=== PATIENT | female | born 1960 | race Two or more races ===

== ENCOUNTER 2023-11-22 09:59 | Emergency (ER) | payer MEDICAID ==
[~2023-11-22] VITALS: Ht 157.5 cm; Wt 82.7 kg
[2023-11-22 11:06] LABS: Basophils # (auto) 0.1 10 ^3/uL (0-0.2); Basophils % (auto) 0.8 % (0.0-2.0); Eosinophils # (auto) 0.1 10 ^3/uL (0-0.8); Eosinophils % (auto) 1.4 % (0.0-7.0); Hematocrit 39.5 % (36.0-46.0); Lymphocytes # (auto) 2.6 10 ^3/uL (0.4-5.4); Lymphocytes % (auto) 27.4 % (10.0-50.0); Mean Corpuscular Hemoglobin 32.1 pg (28.0-32.0); Mean Corpuscular Hgb Conc. 32.9 g/dL (32.0-36.0); Mean Corpuscular Volume 97.4 fL (80.0-100.0); Monocytes # (auto) 0.8 10 ^3/uL (0-1.3); Neutrophils # (auto) 5.9 10 ^3/uL (1.6-8.6); Neutrophils % (auto) 62.4 % (37.0-80.0); Nucleated Red Blood Cells % 0.1 %; Red Blood Cells 4.05 10^6/uL (4.0-5.20); Red Cell Distribution Width 14.1 % (11.8-14.3); White Blood Cell 9.5 10^3/uL (4.4-10.8)
[2023-11-22 11:28] LABS: Alanine Aminotransferase 17 U/L (7-40); Albumin 4.4 g/dL (3.2-4.8); Alkaline Phosphatase 101 U/L (46-116); Anion Gap 5 (5-15); Aspartate Aminotransferase 22 U/L (13-40); BUN/Creatinine Ratio 14.9 (10.0-20.0); Blood Urea Nitrogen 10 mg/dL (9-23); Calcium 9.7 mg/dL (8.5-10.1); Carbon Dioxide 29 mmol/L (20-30); Chloride 106 mmol/L (98-107); Glucose 93 mg/dL (74-106); Potassium 3.7 mmol/L (3.5-5.1); Sodium 140 mmol/L (136-145)
[2023-11-22 11:29] LABS: Bilirubin, Total 0.8 mg/dL (0.2-1.0); Total Protein 7.1 g/dL (5.7-8.2)
[2023-11-22] MEDS: METOCLOPRAMIDE HCL 5MG/ml INJ 2ml VIAL IM ONE (15:49)
[2023-11-22] MEDS: ACETAMINOPHEN 500 MG TAB PO ONE (15:50)
[2023-11-22 15:51] VITALS: BP 121/70; PULSE 75; RESP 18; TEMP 98; O2SAT 98
[2023-11-22] MEDS ORDERED: METO-281 PO (18:41)
== END 2023-11-22 23:04 | disposition home or self-care (01) ==
LOC: ER 09:59
DX: R51.9 Headache, unspecified (principal); R42 Dizziness and giddiness
CPT/HCPCS: 36415; 70450; 71045; 80053; 83880; 84484; 85025; 85379; 93005; 93970; 96372; 99285; J2765

== ENCOUNTER 2024-09-17 10:55 | Emergency (ER) | payer MEDICAID ==
[~2024-09-17] VITALS: Ht 157.5 cm; Wt 89.5 kg
[~2024-09-17 10:55] MED LIST: METO-281 PO
--- NOTE | 2024-09-17 11:37 | ECG ---
[facility] Test Date: 2024-09-17 Test Time: 11:24:29 Pat Name: DOMINIK WILSON Department: ER Room: [address] [place] [address] Gender: F Leather Patcher: ED : 1960 Requested By: RAIMUNDO LUIS Order Number: [id number] Reading MD: Atif Wright Measurements Intervals [place] Rate: 74 P: 52 CT: 158 QRS: 65 QRSD: 104 T: 47 QT: 347 QTc: 385 Interpretive Statements Sinus rhythm Borderline T wave abnormalities Electronically Signed On 09-21-2024 17:43:47 PST by Atif Wright Please click the below link to view image of tracing.
--- NOTE | 2024-09-17 11:38 | ED.PDOC ---
HPI (NEURO) HPI Comments 64 year old female presents to the ED with chief complaint of headache. Patient reports that she has been experiencing a headache with associated SOB and chest pain that radiates down his left arm and back. Patient relays that she has not followed up with her PCP in [place] regarding this concern. Patient denies any N/V, dizziness, fever, chills, cough, or abdominal pain. Chief Complaint: Headache Time Seen by MD: 11:35 Primary Care Provider: NONE Reviewed Notes: Nurses Notes, Medications, Allergies Information Source: Patient Mode of Arrival: Ambulatory Severity: Moderate Headache Severity: Moderate Timing: Days Duration: Since onset Prehospital treatment: None Headache Quality: Aching Headache Location: Frontal Onset: At rest Circumstances: Spontaneous Symptoms: None Before: Normal After: Headache Modifying factors: Nothing Associated Signs and Symptoms: Headache, Chest Pain Past Medical History PAST MEDICAL HISTORY: Thyroid Surgical History: Surgical History (Other): Liposuction OUTPATIENT THERAPIST History: No Pertinent OUTPATIENT THERAPIST History Family History Family History: Reviewed,noncontributory to illness Social History Smoker: Non-Smoker Alcohol: Denies ETOH Use Drugs: Denies Drug Use Lives In: Home Constitutional: denies: chills, diaphoresis, fatigue, fever, malaise, sweats, weakness, others EENTM: denies: blurred vision, double vision, ear bleeding, ear discharge, ear drainage, ear pain, ear ringing, eye pain, eye redness, hearing loss, mouth pain, mouth swelling, nasal discharge, nose bleeding, nose congestion, nose pain, photophobia, tearing, throat pain, throat swelling, voice changes, others Respiratory: reports: shortness of breath; denies: cough, hemoptysis, orthopnea, SOB at rest, SOB with excertion, stridor, wheezing, others Cardiovascular: reports: chest pain, left arm pain; denies: dizzy spells, diaphoresis, Dyspnea on exertion, edema, irregular heart beat, lightheadedness, palpitations, PND, syncope, others Gastrointestinal: denies: abdomen distended, abdominal pain, blood streaked bowels, constipated, diarrhea, dysphagia, difficulty swallowing, hematemesis, melena, nausea, poor appetite, poor fluid intake, rectal bleeding, rectal pain, vomiting, others Genitourinary: denies: abnormal vagina bleeding, burning, dyspareunia, dysuria, flank pain, frequency, hematuria, incontinence, pain, , vagina discharge, urgency, others Neurological: reports: headache; denies: dizziness, fainting, left sided numbness, left sided weakness, numbness, paresthesia, pre-existing deficit, right sided numbness, right sided weakness, seizure, speech problems, tingling, tremors, weakness, others Musculoskeletal: denies: back pain, gout, joint pain, joint swelling, muscle pain, muscle stiffness, neck pain, others Integumetry: denies: bruises, change in color, change in hair/nails, dryness, laceration, lesions, lumps, rash, wounds, others Allergic/Immunocompromised: denies: Difficulty Healing, Frequent Infections, Hives, Itching, others Hematologic/Lymphatic: denies: anemia, blood clots, easy bleeding, easy bruising, swollen glands, others Endocrine: denies: excessive hunger, excessive sweating, excessive thirst, excessive urination, flushing, intolerance to cold, intolerance to heat, unexplained weight gain, unexplained weight loss, others Psychiatric: denies: anxiety, bipolar disorder, depression, hopeless, panic disorder, schizophrenia, sleepless, suicidal, others All Other Systems: Reviewed and Negative Physical Exam General Appearance: Moderate Distress, Normal HEENT: Normal ENT Inspection, PERRL/EOMI Neck: Full Range of Motion, Non-Tender, Normal, Normal Inspection Respiratory: Chest Non-Tender, Lungs Clear, No Accessory Muscle Use, No Respiratory Distress, Normal Breath Sounds Cardiovascular: No Edema, No JVD, No Murmur, No Gallop, Normal Peripheral Pulses, Regular Rate/Rhythm Breast Exam: Deferred Gastrointestinal: No Organomegaly, Non Tender, No Pulsatile Mass, Normal Bowel Sounds, Soft Genitalia: Deferred Pelvic: Deferred Rectal: Deferred Extremities: No calf tenderness, Normal capillary refill, Normal inspection, Normal range of motion, Non-tender, No pedal edema Musculoskeletal : Apperance: Normal Neurologic: Alert, operations officer trust department II-XII nml as Tested, No Motor Deficits, Normal Affect, Normal Mood, No Sensory Deficits Cerebellar Function: Normal Reflexes: Normal Skin: Dry, Normal Color, Warm Peripheral Pulses: 3+ Radial (R), 3+ Radial (L) Lymphatic: No Adenopathy Was a procedure done? Was a procedure done?: No Differential Diagnosis (SZ) Seizure: Psychogenic Seizure, Closed Head Injury, CVA/TIA X-Ray, Labs, Meds, VS Vital Signs Date Time Temp Pulse Resp B/P (MAP) Pulse Ox O2 Delivery O2 Flow Rate FiO2 09/17/24 12:21 Room Air* 0 21 09/17/24 11:24 74 09/17/24 11:16 98.6 96 20 133/88 (103) 97 Lab Test 09/17/24 11:54 09/17/24 11:22 09/17/24 11:20 Range/Units White Blood Count 9.2 4.4-10.8 10^3/uL Red Blood Count 3.77 L 4.0-5.20 10^6/uL Hemoglobin 13.1 12.2-16.2 g/dL Hematocrit 37.8 36.0-46.0 % Mean Corpuscular Volume 100.3 H 80.0-100.0 fL Mean Corpuscular Hemoglobin 34.7 H 28.0-32.0 pg Mean Corpuscular Hemoglobin Concent 34.6 32.0-36.0 g/dL Red Cell Distribution Width 13.0 11.8-14.3 % Platelet Count 249 140-450 10^3/uL Mean Platelet Volume 7.8 6.9-10.8 fL Neutrophils (%) (Auto) 76.3 37.0-80.0 % Lymphocytes (%) (Auto) 17.8 10.0-50.0 % Monocytes (%) (Auto) 4.9 0.0-12.0 % Eosinophils (%) (Auto) 0.6 0.0-7.0 % Basophils (%) (Auto) 0.4 0.0-2.0 % Neutrophils # (Auto) 7.0 1.6-8.6 10 ^3/uL Lymphocytes # (Auto) 1.6 0.4-5.4 10 ^3/uL Monocytes # (Auto) 0.5 0-1.3 10 ^3/uL Eosinophils # (Auto) 0.1 0-0.8 10 ^3/uL Basophils # (Auto) 0 0-0.2 10 ^3/uL Nucleated Red Blood Cells 0.0 % Sodium Level 142 136-145 mmol/L Potassium Level 4.3 3.5-5.1 mmol/L Chloride Level 107 98-107 mmol/L Carbon Dioxide Level 27 20-31 mmol/L Anion Gap 8 5-15 Blood Urea Nitrogen 11 9-23 mg/dL Creatinine 0.71 0.550-1.02 mg/dL Glomerular Filtration Rate Calc 96 >90 mL/min BUN/Creatinine Ratio 15.5 10.0-20.0 Serum Glucose 110 H 74-106 mg/dL Calcium Level 10.0 8.7-10.4 mg/dL Troponin I High Sensitivity < 3 L </=34 ng/L POC Glucose 113 H 70-106 mg/dl Urine Color Light-yellow Yellow Urine Clarity Clear Clear Urine pH 6.5 5.0-9.0 Urine Specific [place] 1.012 1.001-1.035 Urine Protein Negative Negative Urine Ketones Negative Negative Urine Blood Negative Negative /uL Urine Nitrite Negative Negative Urine Bilirubin Negative Negative Urine Urobilinogen Normal Negative mg/dL Urine Leukocyte Esterase Negative Negative /uL Urine RBC 1 0 - 4 /hpf Urine Microscopic WBC 2 0-5 /HPF Urine Squamous Epithelial Cells None seen <5 /hpf Urine Bacteria None seen None Seen /hpf Urine Glucose 1+ H Normal mg/dL Patient alert. Complaining of headache chest pain. Vitals stable. Answering questions. EKG reviewed does not show any acute changes. Possible TIA. Has never seen a paste up copy camera operator for full workup of the heart. Continues to have chest pain. Echocardiogram. Cardiology consultation. Possible stress test. Explained to the patient. Continue monitoring. EKG reviewed does not show any acute changes. Time of 1ST Reevaluation: 12:35 Reevaluation 1ST: Unchanged Patient Education/Counseling: Diagnosis, Treatment Family Education/Counseling: No Family Present Additional Information Previous visit documents reviewed: The following tests were ordered, and results were reviewed by me: Additional Information was gathered from interviewing the following independent historians: I reviewed and agreed with the following test results read by other providers: I discussed treatment and results with medical personnel and: Departure 1 Departure Time of Disposition: 11:55 Impression: Primary Impression: Chest pain of unknown etiology Additional Impression: Generalized headache Disposition: ADMITTED INPATIENT Admit to: Med Surg Condition: Guarded Critical Care Note Critical Care Time?: No Stability Stability form required: No Heart Score Heart Score: Heart Score Response (Comments) Value History Slightly Suspicious 0 EKG Normal 0 Age 45-64 1 Risk Factors 1 or 2 risk factors 1 Troponin Normal limit 0 Total 2 I personally scribed for RAIMUNDO LUIS MD ([email or web address]) on 09/17/24 at 11:38. Electronically submitted by Dylan Gaytan ([email or web address]). RAIMUNDO LUIS MD Sep 17, 2024 11:38
[2024-09-17 12:36] LABS: Basophils # (auto) 0 10 ^3/uL (0-0.2); Hemoglobin 13.1 g/dL (12.2-16.2); Lymphocytes # (auto) 1.6 10 ^3/uL (0.4-5.4); Lymphocytes % (auto) 17.8 % (10.0-50.0); Monocytes # (auto) 0.5 10 ^3/uL (0-1.3); Monocytes % (auto) 4.9 % (0.0-12.0); Potassium 4.3 mmol/L (3.5-5.1); Sodium 142 mmol/L (136-145); White Blood Cell 9.2 10^3/uL (4.4-10.8)
[2024-09-17 12:37] LABS: Anion Gap 8 (5-15); Basophils % (auto) 0.4 % (0.0-2.0); Carbon Dioxide 27 mmol/L (20-31); Eosinophils # (auto) 0.1 10 ^3/uL (0-0.8); Eosinophils % (auto) 0.6 % (0.0-7.0); Hematocrit 37.8 % (36.0-46.0); Mean Corpuscular Hemoglobin 34.7 pg (28.0-32.0); Mean Corpuscular Hgb Conc. 34.6 g/dL (32.0-36.0); Mean Corpuscular Volume 100.3 fL (80.0-100.0); Neutrophils % (auto) 76.3 % (37.0-80.0); Platelet Count (auto) 249 10^3/uL (140-450); Red Blood Cells 3.77 10^6/uL (4.0-5.20)
[2024-09-17 12:41] LABS: Chloride 107 mmol/L (98-107)
[2024-09-17 12:42] LABS: BUN/Creatinine Ratio 15.5 (10.0-20.0); Blood Urea Nitrogen 11 mg/dL (9-23)
[2024-09-17 12:44] LABS: Glucose 110 mg/dL (74-106)
[2024-09-17 13:52] LABS: Urine Bacteria None Seen /hpf (None Seen)
[2024-09-17 14:22] LABS: Urine Blood Negative /uL (Negative); Urine Clarity Clear (Clear); Urine Color Light-Yellow (Yellow); Urine Protein, UAD Negative (Negative); Urine Specific Gravity 1.012 (1.001-1.035); Urine Squamous Epithelial Cell None Seen /hpf (<5); Urine Urobilinogen Normal (Negative); Urine WBC 2 /HPF (0-5); Urine pH 6.5 (5.0-9.0)
[2024-09-17] MEDS ORDERED: MORPHINE SULFATE INJ 2 MG/ml SYRG IV PRN (16:30)
[2024-09-17] MEDS ORDERED: NITROGLYCERIN 0.4 MG SL TAB SL PRN (16:30)
[2024-09-17] MEDS ORDERED: ONDANSETRON HCL 4 MG/2 ML VIAL IV PRN (16:45)
--- NOTE | 2024-09-17 16:50 | DVHHP2 ---
History of Present Illness Reason for Visit: Headache, left arm pain , dizziness with fall History of Present Illness Patient was a 64-year-old female presenting to the emergency room with reports of right occipital lobe headache, dizziness, and left arm paresthesia as well as intermittent chest pressure. At the time of assessment, the patient continues to have left arm paresthesia as well as occipital lobe headache. At this time, there has been no diagnostic testing other than lab work which was essentially negative. Significant history of the patient includes hypothyroidism. Endocrine: Hypothyroidism Past Surgical History: None, Family History: None Smoke: No ALCOHOL: none Drugs: None Lives: with Family Review of Systems Constitutional: Yes: Other (Headache); No: Fever, Chills, Sweats, Weakness, Malaise Eyes: No: Pain, Vision change, Conjunctivae inflammation, Eyelid inflammation, Other, Redness ENT: No: Ear pain, Ear discharge, Nose pain, Nose discharge, Nose congestion, Mouth pain, Mouth swelling, Throat pain, Throat swelling, Other Respiratory: No: Cough, Dry, Shortness of breath, SOB with excertion, Wheezing, Hemoptysis, Pleuritic Pain, Sputum, Wheezing, Other Cardiovascular: No: Chest Pain, Palpitations, Orthopnea, Paroxysmal Noc. Dyspnea, Edema, Lt Headedness, Other Gastrointestinal: No: Nausea, Vomiting, Abdominal Pain, Diarrhea, Constipation, Melena, Hematochezia, Other Genitourinary: No Dysuria, No Frequency, No Incontinence, No Hematuria, No Retention, No Other Musculoskeletal: No: other, neck pain, shoulder pain, arm pain, back pain, hand pain, leg pain, foot pain Skin: No: Rash, Lesions, Jaundice, Bruising, Other Neurological: Numbness (Left arm); No: Weakness, Incoordination, Change in speech, Confusion, Seizures, Other Allergies: Coded Allergies: NO KNOWN ALLERGIES (Unverified , 11/22/23) Medications Current Medications Medications Dose Ordered Sig/Erwin Route Start Time Stop Time Status Last Admin Dose Admin Nitroglycerin 0.4 mg Q5MINP PRN SL 09/17/24 16:30 UNV Morphine Sulfate 2 mg Q30M PRN IV 09/17/24 16:30 UNV Acetaminophen/ Hydrocodone Bitart 1 tab Q6HPRN PRN PO 09/17/24 16:45 UNV Acetaminophen 500 mg Q8HP PRN PO 09/17/24 16:45 UNV Ondansetron HCl 4 mg Q6HP PRN IV 09/17/24 16:45 UNV Exam Vital Signs Vital Signs Date Time Temp Pulse Resp B/P (MAP) Pulse Ox O2 Delivery O2 Flow Rate FiO2 09/17/24 12:21 Room Air* 0 21 09/17/24 11:24 74 09/17/24 11:16 98.6 20 133/88 (103) 97 General Appearance: Alert, Oriented X3, Cooperative HEENT: Atraumatic, PERRLA Cardiovascular: Normal S1, Normal S2 Abdominal: Normal bowel sounds, Soft, No tenderness Extremities: No clubbing, No cyanosis, No edema, Normal pulses Skin: No rashes, No breakdown, No significant lesion Neuro: Normal gait, Normal speech Psych/Mental Status: Mental status NL, Mood NL Labs/Xrays Labs Test 09/17/24 11:54 09/17/24 11:22 09/17/24 11:20 Range/Units White Blood Count 9.2 4.4-10.8 10^3/uL Red Blood Count 3.77 L 4.0-5.20 10^6/uL Hemoglobin 13.1 12.2-16.2 g/dL Hematocrit 37.8 36.0-46.0 % Mean Corpuscular Volume 100.3 H 80.0-100.0 fL Mean Corpuscular Hemoglobin 34.7 H 28.0-32.0 pg Mean Corpuscular Hemoglobin Concent 34.6 32.0-36.0 g/dL Red Cell Distribution Width 13.0 11.8-14.3 % Platelet Count 249 140-450 10^3/uL Mean Platelet Volume 7.8 6.9-10.8 fL Neutrophils (%) (Auto) 76.3 37.0-80.0 % Lymphocytes (%) (Auto) 17.8 10.0-50.0 % Monocytes (%) (Auto) 4.9 0.0-12.0 % Eosinophils (%) (Auto) 0.6 0.0-7.0 % Basophils (%) (Auto) 0.4 0.0-2.0 % Neutrophils # (Auto) 7.0 1.6-8.6 10 ^3/uL Lymphocytes # (Auto) 1.6 0.4-5.4 10 ^3/uL Monocytes # (Auto) 0.5 0-1.3 10 ^3/uL Eosinophils # (Auto) 0.1 0-0.8 10 ^3/uL Basophils # (Auto) 0 0-0.2 10 ^3/uL Nucleated Red Blood Cells 0.0 % Sodium Level 142 136-145 mmol/L Potassium Level 4.3 3.5-5.1 mmol/L Chloride Level 107 98-107 mmol/L Carbon Dioxide Level 27 20-31 mmol/L Anion Gap 8 5-15 Blood Urea Nitrogen 11 9-23 mg/dL Creatinine 0.71 0.550-1.02 mg/dL Glomerular Filtration Rate Calc 96 >90 mL/min BUN/Creatinine Ratio 15.5 10.0-20.0 Serum Glucose 110 H 74-106 mg/dL Calcium Level 10.0 8.7-10.4 mg/dL Troponin I High Sensitivity < 3 L </=34 ng/L POC Glucose 113 H 70-106 mg/dl Urine Color Light-yellow Yellow Urine Clarity Clear Clear Urine pH 6.5 5.0-9.0 Urine Specific [place] 1.012 1.001-1.035 Urine Protein Negative Negative Urine Ketones Negative Negative Urine Blood Negative Negative /uL Urine Nitrite Negative Negative Urine Bilirubin Negative Negative Urine Urobilinogen Normal Negative mg/dL Urine Leukocyte Esterase Negative Negative /uL Urine RBC 1 0 - 4 /hpf Urine Microscopic WBC 2 0-5 /HPF Urine Squamous Epithelial Cells None seen <5 /hpf Urine Bacteria None seen None Seen /hpf Urine Glucose 1+ H Normal mg/dL Assessment/Plan Assessment/Plan Impression: -syncope with collapse -obesity -hypothyroidism -rule out CVA Plan: -admit to telemetry unit -carotid Doppler study -CT of the head -echocardiogram -check thyroid panel, lipid panel, A1c -lifestyle modification education: Discussed with the patient the need to attempt to lose weight to curb her current symptoms. Total time spent with patient discussing and formulating plan of care: 35 minutes. This medical document was created using an electronic medical record system with [employer] system. Although this document has been carefully reviewed, there may still be some phonetic and typographical errors. These areas are purely typographical due to imperfections of the software programs, and do not reflect any compromise in the patient's medical care. Plan discussed with: Patient, Other (RN) My Orders Orders - ELI SCOTT NP Procedure Category Date Status Time Admit ADMIT 09/17/24 Transmitted 16:25 Nitroglycerin PHA 09/17/24 Logged Sublingual (Ntrostat 16:30 Morphine Sulfate PHA 09/17/24 Logged Injection 16:30 Stat Ekg For Chest SORAIDA 09/17/24 In Process Pain 16:25 Notify Md Of Changes SORAIDA 09/17/24 In Process From Base 16:25 Rock Wool Insulator For SORAIDA 09/17/24 In Process 24 Hours 16:25 Emergency Dysrhythmia SORAIDA 09/17/24 In Process Protocol 16:25 Rhythm Strips Once SORAIDA 09/17/24 In Process Every Shift 16:25 Oxygen By Nasal RT 09/17/24 Transmitted Cannula 16:25 Hemoglobin A1c LAB 09/17/24 In Process 16:25 Lipid Panel LAB 09/17/24 In Process 16:25 Carotid Duplx W Color US 09/17/24 Logged DOP 16:25 Cardiac DIET 09/17/24 Transmitted Diet-2gna,Lofat,Lochol [place] Without Contrast CT 09/17/24 Logged 16:39 Hydrocodone-Acet PHA 09/17/24 Transmitted 5/325mg Tab ([place] 16:45 Acetaminophen Tab Or PHA 09/17/24 Transmitted Cap (Tylenol Tablet 16:45 Ondansetron Hcl PHA 09/17/24 Transmitted (Zofran) 16:45 Date of Service: Sep 17, 2024 Billing Provider: ELI SCOTT NP Common Visit Codes: [id number] INP/OBS CARE (HIGH) ELI SCOTT NP Sep 17, 2024 16:50
[2024-09-17 17:00] LABS: Triglycerides 99 mg/dL (< 150)
[2024-09-17 17:02] LABS: HDL Cholesterol 51 mg/dL (40-59)
[2024-09-17 17:07] LABS: Cholesterol 289 mg/dL (< 200); LDL Cholesterol 225 mg/dL (< 100)
--- NOTE | 2024-09-17 17:31 | DVH ---
EXAM: CT HEAD WITHOUT CONTRAST HISTORY: syncope with collapse COMPARISON: CT HEAD WITHOUT CONTRAST on DOS: 11/22/23 TECHNIQUE: Axial images of the head were obtained and reformatted in coronal and sagittal planes. All CT scans at this medical facility are performed using dose modulation techniques as appropriate t o a performed exam including the following: Automated exposure control was utilized; adjustment of th e MA and/or KV according to patient size; and use of iterative reconstruction technique. CT Dose: CTDI volume is 48.74 mGy. Dose-length product is 781.56 mGy*cm FINDINGS: There is no evidence of acute intracranial hemorrhage, mass, mass effect midline shift. There is no h ydrocephalus or extra-axial fluid collection. Frazier-white matter differentiation is maintained. The visualized paranasal sinuses and mastoid air cells are clear. The calvarium is intact. IMPRESSION: 1. No acute intracranial process. HS:Y
[2024-09-17] MEDS: ACETAMINOPHEN 500 MG TAB or CAP PO PRN (17:40)
--- NOTE | 2024-09-17 17:47 | DVH ---
Carotid Duplex Date: 09/17/2024 05:03 PM Clinical History: syncope with collaps Comparison: None Technique: Duplex Doppler evaluation of the extracranial carotid and vertebral arteries including color Doppler and spectral/pulsed waveform analysis was performed. Findings: RIGHT SIDE: The peak systolic velocities are 88.6 cm/s in the distal CCA and 70.2 cm/s in the proximal ICA.The IC A/CCA ratio is less than 1. The external carotid artery is patent with peak systolic velocity of 82 cm/s proximally. There is appropriate antegrade flow in the right vertebral artery, 54.8 cm/s LEFT SIDE: The peak systolic velocities are 74.6 cm/s in the distal CCA and 73.2 cm/s in the proximal ICA.. The ICA/CCA ratio is less than 2. The external carotid artery is patent with peak systolic velocity of 49.6 cm/s proximally. There is appropriate antegrade flow in the left vertebral artery, 55.7 cm/s IMPRESSION: 1. No hemodynamically significant stenosis noted in the right carotid system. 2. No hemodynamically significant stenosis noted in the left carotid system. 3. Reference: Radiology 2003; 229:340-346
[2024-09-18 00:05] VITALS: PULSE 91; RESP 16; O2SAT 97
[2024-09-18] MEDS: HYDROcodone-ACET 5/325MG TAB PO PRN (09:23)
[2024-09-18] MEDS: LEVOTHYROXINE SODIUM 50 MCG TAB PO SCH (11:46)
[2024-09-18] MEDS ORDERED: ATOR40TA52 PO (14:55)
[2024-09-18] MEDS ORDERED: LEVO150T10 PO (14:55)
--- NOTE | 2024-09-18 15:02 | DVHDS2 ---
Discharge Summary Date of Admission Sep 17, 2024 at 16:25 Date of Discharge: Sep 18, 2024 Admitting Diagnosis Syncope with collapse Labs/Diagnostic Data: Laboratory Results Test 09/17/24 11:54 09/17/24 11:22 09/17/24 11:20 White Blood Count 9.2 10^3/uL (4.4-10.8) Red Blood Count 3.77 10^6/uL (4.0-5.20) Hemoglobin 13.1 g/dL (12.2-16.2) Hematocrit 37.8 % (36.0-46.0) Mean Corpuscular Volume 100.3 fL (80.0-100.0) Mean Corpuscular Hemoglobin 34.7 pg (28.0-32.0) Mean Corpuscular Hemoglobin Concent 34.6 g/dL (32.0-36.0) Red Cell Distribution Width 13.0 % (11.8-14.3) Platelet Count 249 10^3/uL (140-450) Mean Platelet Volume 7.8 fL (6.9-10.8) Neutrophils (%) (Auto) 76.3 % (37.0-80.0) Lymphocytes (%) (Auto) 17.8 % (10.0-50.0) Monocytes (%) (Auto) 4.9 % (0.0-12.0) Eosinophils (%) (Auto) 0.6 % (0.0-7.0) Basophils (%) (Auto) 0.4 % (0.0-2.0) Neutrophils # (Auto) 7.0 10 ^3/uL (1.6-8.6) Lymphocytes # (Auto) 1.6 10 ^3/uL (0.4-5.4) Monocytes # (Auto) 0.5 10 ^3/uL (0-1.3) Eosinophils # (Auto) 0.1 10 ^3/uL (0-0.8) Basophils # (Auto) 0 10 ^3/uL (0-0.2) Nucleated Red Blood Cells 0.0 % Sodium Level 142 mmol/L (136-145) Potassium Level 4.3 mmol/L (3.5-5.1) Chloride Level 107 mmol/L (98-107) Carbon Dioxide Level 27 mmol/L (20-31) Anion Gap 8 (5-15) Blood Urea Nitrogen 11 mg/dL (9-23) Creatinine 0.71 mg/dL (0.550-1.02) Glomerular Filtration Rate Calc 96 mL/min (>90) BUN/Creatinine Ratio 15.5 (10.0-20.0) Serum Glucose 110 mg/dL (74-106) Hemoglobin A1c 5.9 % A1C (<5.7) Calcium Level 10.0 mg/dL (8.7-10.4) Troponin I High Sensitivity < 3 ng/L (</=34) Triglycerides Level 99 mg/dL (< 150) Cholesterol Level 289 mg/dL (< 200) LDL Cholesterol 225 mg/dL (< 100) HDL Cholesterol 51 mg/dL (40-59) Thyroid Stimulating Hormone (TSH) 7.56 uIU/mL (0.55-4.78) POC Glucose 113 mg/dl (70-106) Urine Color Light-yellow (Yellow) Urine Clarity Clear (Clear) Urine pH 6.5 (5.0-9.0) Urine Specific [place] 1.012 (1.001-1.035) Urine Protein Negative (Negative) Urine Ketones Negative (Negative) Urine Blood Negative /uL (Negative) Urine Nitrite Negative (Negative) Urine Bilirubin Negative (Negative) Urine Urobilinogen Normal mg/dL (Negative) Urine Leukocyte Esterase Negative /uL (Negative) Urine RBC 1 /hpf (0 - 4) Urine Microscopic WBC 2 /HPF (0-5) Urine Squamous Epithelial Cells None seen /hpf (<5) Urine Bacteria None seen /hpf (None Seen) Urine Glucose 1+ mg/dL (Normal) Other Laboratory Tests 09/17/24 11:54 Brief Hx & Hospital Course: History of Present Illness Patient was a 64-year-old female presenting to the emergency room with reports of right occipital lobe headache, dizziness, and left arm paresthesia as well as intermittent chest pressure. At the time of assessment, the patient continues to have left arm paresthesia as well as occipital lobe headache. At this time, there has been no diagnostic testing other than lab work which was essentially negative. Significant history of the patient includes hypothyroidism. Course of Hospitalization: Patient has CT of the head which was negative for any acute pathology. Patient had carotid Doppler study which has been negative for any flow-limiting stenosis. Patient was found ambulating around the hospital including to the cafeteria without any signs of dizziness. Patient was found to have severe dyslipidemia as well as hypothyroidism despite current medications. Patient will be discharged home with atorvastatin 40 mg q.h.s. as well as increasing her levothyroxine to 150 mcg daily. She was instructed to follow up with her PCP in [place] at next available appointment. She was agreeable with discharge plan. All questions answered. Physical examination General: Alert and Oriented x3. No acute distress. Well-nourished. Obese Eyes: EOMI. Anicteric. HENT: Moist mucous membranes. Lungs: Clear to auscultation bilaterally. No accessory muscle use. Cardiovascular: Regular rate and rhythm. No murmur. No JVD. Abdomen: Soft, non-tender and non-distended. No palpable masses. Extremities: No edema. Non-tender. Skin: No rashes or lesions. Warm. Neurologic: No focal neurological deficits. CN II-XII grossly intact, but not individually tested. Psychiatric: Cooperative. Appropriate mood and affect. Total time spent with patient discussing and formulating plan of care: 35 minutes. This medical document was created using an electronic medical record system with [employer] dictation system. Although this document has been carefully reviewed, there may still be some phonetic and typographical errors. These areas are purely typographical due to imperfections of the software programs, and do not reflect any compromise in the patient's medical care. Condition at Discharge: Fair Final Diagnosis/Problems List Syncope with collapse Secondary Diagnosis: -obesity -hypothyroidism -ruled out CVA -Dyslipidemia Discharge Disposition: Home Discharge Instruct/Medications Diet: Cardiac 2g Na,low cholest Activity: No Restrictions, As Tolerated Follow Up/Referral: Follow up with primary doctor in [place] Medications: Increase levothyroxine to 150mcg/day Atovastatin 40mg po QHS 36 Discharge Statement: "Patient was advised to return to the ER or call 911 if any headaches, dizziness, shortness of breath, chest pain, abdominal pain, bleeding, fevers, or worsening of medical condition. Patient was counseled about treatment plan, medications, possible side effects, patientverbalized understanding. All questions were answered to the best of my ability. This discharge took greater then 30 minutes in planning, reviewing documentation, counseling the patient, and discussing with other team members." ASSESSMENT ASSESSMENT Assessment Syncope with collapse Date of Service: Sep 18, 2024 Billing Provider: ELI SCOTT NP Common Visit Codes: 38060-VNF/OBS DISCH DAY >30min ELI SCOTT NP Sep 18, 2024 15:01
[2024-09-18 15:29] VITALS: BP 144/87; PULSE 100; RESP 18; TEMP 98; O2SAT 95
[2024-09-18] MEDS ORDERED: ATORVASTATIN 20 MG TAB PO SCH (22:00)
== END 2024-09-18 15:33 | disposition home or self-care (01) ==
LOC: ER 10:55 → OVERFLOW 16:25 → UNDOADMIN 16:25 → ER 16:33
DX: R51.9 Headache, unspecified (principal); R07.89 Other chest pain; I20.0 Unstable angina
CPT/HCPCS: 36415; 70450; 80048; 80061; 81001; 82962; 83036; 84443; 84484; 85025; 93005; 93886; G0378